=== PATIENT | male | born 1950 | race Caucasian/White ===

== ENCOUNTER 2022-02-28 11:26 | Outpatient (CLI) | payer BC, SELFPAY ==
[2022-02-28 12:12] LABS: Creatinine* 1.2 mg/dL (0.5-1.5); Estimated Glomerular Filt Rate 64 ml/min
--- NOTE | 2022-02-28 13:00 | CRLHL7_ITS ---
For Patients: As a result of the Century Cures Act, medical imaging exams and procedure reports are released immediately into your electronic medical record. You may view this report before your referring provider. If you have questions, please contact your health care provider. HISTORY: 71-year-old male. Prostate cancer. TECHNIQUE: 27.1 millicuries of [id number] was injected intravenously. Delayed whole body images were obtained in the anterior and posterior projections. Lateral views of the pelvis were also obtained. COMPARISON: Bone window bone windows from the 02/28/[address] scan. FINDINGS: There is good uptake of activity by the skeleton. Mild uptake in the lower thoracic and lumbar spine correspond to the benign-appearing degenerative changes on the CT bone windows. Mild uptake in the shoulders, wrists, knees and feet is likely also arthritic. No other significant bony abnormalities are identified. IMPRESSION: 1. There is no evidence of skeletal metastases. 2. There are mild benign-appearing arthritic changes. Dictated by Elier Yu MD @ 02/28/2022 3:47:17 PM (Electronically Signed)
--- NOTE | 2022-02-28 14:00 | CRLHL7_ITS ---
For Patients: As a result of the Century Cures Act, medical imaging exams and procedure reports are released immediately into your electronic medical record. You may view this report before your referring provider. If you have questions, please contact your health care provider. Indication: MALIGNANT NEOPLASM OF PROSTATE Technique: Postcontrast CT abdomen and pelvis. Oral water. 74 cc Isovue 370 intravenous contrast. Please note that all CT scans at this facility use dose modulation, iterative reconstruction, and/or weight-based dosing when appropriate to reduce radiation dose to as low as reasonably achievable. 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 Thickening of the interlobular septa in the periphery of both lower lobes along with pleural thickening. This is compatible with chronic asbestosis. No pericardial effusion. Simple intrahepatic cyst within the left hepatic lobe measuring 2.2 cm. Less than 5 millimeters cyst inferiorly within the liver. Spleen normal. Adrenal glands unremarkable. Small renal cortical cysts bilaterally without hydronephrosis. Pancreas normal. Subcentimeter retroperitoneal lymph nodes in the upper abdomen. Vascular calcifications. No aneurysm. The prostate is enlarged with mass effect upon the inferior bladder. Normal ureters. Sigmoid diverticulosis. No diverticulitis. No bowel obstruction or free air. No free fluid or abscess. Normal appendix. No pelvic or inguinal adenopathy degenerative changes lumbar spine. No compression fracture. No suspicious osseous lesions. Impression: No evidence of metastatic disease. Please note that all CT scans at this facility use dose modulation, iterative reconstruction, and/or weight-based dosing when appropriate to reduce radiation dose to as low as reasonably achievable. Dictated by Aquiles Baltazar MD @ 02/28/2022 3:28:34 PM (Electronically Signed)
== END 2022-02-28 11:27 | disposition home or self-care (01) ==
PROVIDERS: PCP Family Medicine; Visit Provider Urology
DX: C61 Malignant neoplasm of prostate (principal)
CPT/HCPCS: 36415; 74177; 78306; 82565; A9503; Q9967

== ENCOUNTER 2022-05-08 08:13 | Outpatient (CLI) | payer BC, SELFPAY ==
[2022-05-08 14:08] LABS: Cholesterol* 180 mg/dL (90-199)
[2022-05-08 14:09] LABS: HDL Cholesterol* 84 mg/dL (>=40); LDL Cholesterol Calculated 87 mg/dL (<100); Triglycerides* 44 mg/dL (40-149)
== END 2022-05-08 08:14 | disposition home or self-care (01) ==
LOC: LONREF 08:14
PROVIDERS: PCP Family Medicine; Visit Provider Family Medicine
DX: E78.5 Hyperlipidemia, unspecified (principal)
CPT/HCPCS: 80061

== ENCOUNTER 2022-05-15 09:46 | Outpatient (CLI) | payer BC, SELFPAY ==
--- NOTE | 2022-05-15 10:00 | CRLHL7_ITS ---
For Patients: As a result of the Century Cures Act, medical imaging exams and procedure reports are released immediately into your electronic medical record. You may view this report before your referring provider. If you have questions, please contact your health care provider. Indication: ASBESTOS WITH PLEURAL PLAQUE Technique: Routine noncontrast CT chest. Additional supine high-resolution images performed in inspiration. Please note that all CT scans at this facility use dose modulation, iterative reconstruction, and/or weight-based dosing when appropriate to reduce radiation dose to as low as reasonably achievable. Comparison: 06/27/2021 Findings: Stable 5 millimeter pulmonary nodule within the right middle lobe. Additional smaller nodules within the right lung are also similar. No significant interval change in calcified and noncalcified pleural plaques bilaterally. Thickening of the interlobular septa in both lung bases with a peripheral distribution. No pneumothorax or CHF. Upper limits normal mediastinal and hilar lymph nodes. Vascular calcifications. Upper abdomen appears unremarkable. Degenerative disc disease. No fracture. Impression: Asbestosis and asbestos related pleural disease, similar to the prior study. Stable right-sided pulmonary nodules. Please note that all CT scans at this facility use dose modulation, iterative reconstruction, and/or weight-based dosing when appropriate to reduce radiation dose to as low as reasonably achievable. Dictated by Aquiles Baltazar MD @ 05/15/2022 12:06:31 PM (Electronically Signed)
== END 2022-05-15 09:47 | disposition home or self-care (01) ==
LOC: CT 09:49
PROVIDERS: PCP Family Medicine; Visit Provider Family Medicine
DX: J61 Pneumoconiosis due to asbestos and other mineral fibers (principal); R91.8 Other nonspecific abnormal finding of lung field
CPT/HCPCS: 71250

== ENCOUNTER 2022-10-16 11:19 | Outpatient (CLI) | payer BC, SELFPAY | END 2022-10-16 11:20 | disposition home or self-care (01) | LOC: LONREF 11:22 | PROVIDERS: PCP Family Medicine; Visit Provider Family Medicine | DX: Z01.818 Encounter for other preprocedural examination (principal) | CPT/HCPCS: 80048 ==

== ENCOUNTER 2023-07-06 10:11 | Outpatient (CLI) | payer OTHER, SELFPAY | END 2023-07-06 10:12 | disposition home or self-care (01) | LOC: LKVREF 10:14 | PROVIDERS: PCP Family Medicine; Visit Provider Family Medicine | DX: E78.5 Hyperlipidemia, unspecified (principal) | CPT/HCPCS: 80061 ==

== ENCOUNTER 2023-08-06 08:45 | Outpatient (CLI) | payer OTHER, SELFPAY ==
--- NOTE | 2023-08-06 09:00 | CT_ITS ---
Final Report Patient: EARNESTINE ELENA Facility:?[facility] Patient ID:?[id number] Site Patient ID:?[id number]. 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 Multiplanar reformats are included. Please note that all CT scans at this facility use dose modulation, iterative reconstruction, and/or weight-based dosing when appropriate to reduce radiation dose to as low as reasonably achievable. Comparison: None. Findings: Diffuse pleural thickening and pleural nodularity with coarse calcifications consistent with asbestosis. Associated round atelectasis along the periphery of the lungs. There is not any significant contraction of either hemithorax or any mediastinal shift. There is no involvement of the chest wall. There is no mediastinal adenopathy or pleural effusion. Normal appearance of the pulmonary interstitium. No pulmonary nodules, masses, or consolidations. No pneumothorax. Normal tracheobronchial tree. Mildly dilated ascending aorta measuring up to 3.8 centimeters in transverse dimension. The main pulmonary artery is not dilated. No pericardial effusions. Few atherosclerotic vascular calcifications. Small liver cyst in hepatic segment II. No focal bone lesions or destructive osseous process. No acute or healing fractures. Impression: Asbestosis. No CT findings of pleural-based or other thoracic malignancy. Please note that all CT scans at this facility use dose modulation, iterative reconstruction, and/or weight-based dosing when appropriate to reduce radiation dose to as low as reasonably achievable. Dictated by Jaqui Suarez MD @ 08/07/2023 7:27:24 AM (Electronic Signature)
== END 2023-08-06 08:46 | disposition home or self-care (01) ==
LOC: CT 08:46
PROVIDERS: PCP Family Medicine; Visit Provider Family Medicine
DX: J61 Pneumoconiosis due to asbestos and other mineral fibers (principal); J44.9 Chronic obstructive pulmonary disease, unspecified
CPT/HCPCS: 71250

== ENCOUNTER 2025-02-27 09:57 | Outpatient (CLI) | payer OTHER, SELFPAY | END 2025-02-27 09:58 | disposition home or self-care (01) | PROVIDERS: PCP Family Medicine; Visit Provider Family Medicine | DX: E78.5 Hyperlipidemia, unspecified (principal); N52.9 Male erectile dysfunction, unspecified; C61 Malignant neoplasm of prostate; R05.9 Cough, unspecified; Z13.1 Encounter for screening for diabetes mellitus | CPT/HCPCS: 80048; 80061; 84153 ==

== ENCOUNTER 2025-03-06 07:44 | Outpatient (CLI) | payer OTHER, SELFPAY ==
--- NOTE | 2025-03-06 08:00 | CRLHL7_ITS ---
For Patients: As a result of the Century Cures Act, medical imaging exams and procedure reports are released immediately into your electronic medical record. You may view this report before your referring provider. If you have questions, please contact your health care provider. Indication: Asbestos exposure Technique: Noncontrast CT chest Please note that all CT scans at this facility use dose modulation, iterative reconstruction, and/or weight-based dosing when appropriate to reduce radiation dose to as low as reasonably achievable. Comparison: 05/15/2022 Findings: Extensive bilateral pleural plaque formation again noted, some of which demonstrate coarse dystrophic calcification. Visualized thyroid is normal. No mediastinal, hilar or axillary adenopathy. Incidental cyst within the left hepatic lobe is unchanged which measures 2.1 cm. Adrenal glands are normal. Small hiatal hernia. No fracture. Subpleural reticular thickening in both lower lobes in a peripheral distribution, mildly progressed in the interim. Stable nodule within the right middle lobe measures 6.6 millimeters, 3/58. Calcified nodule within the right lung apex is stable. Unchanged smaller nodule within the right middle lobe measures 3.4 millimeters, 3/58. Also stable perifissural nodule in the right lung, 3/48. Impression: Chronic bilateral asbestos related pleural disease, unchanged. Mild progressive bilateral lower lobe asbestosis. Stable bilateral pulmonary nodules. Please note that all CT scans at this facility use dose modulation, iterative reconstruction, and/or weight-based dosing when appropriate to reduce radiation dose to as low as reasonably achievable. Dictated by Aquiles Baltazar MD @ 03/06/2025 1:20:12 PM (Electronically Signed)
== END 2025-03-06 07:45 | disposition home or self-care (01) ==
LOC: CT 07:45
PROVIDERS: PCP Family Medicine; Visit Provider Family Medicine
DX: J61 Pneumoconiosis due to asbestos and other mineral fibers (principal); R91.8 Other nonspecific abnormal finding of lung field
CPT/HCPCS: 71250